=== PATIENT | female | born 1990 | race Two or more races ===

== ENCOUNTER 2020-10-15 14:13 | Outpatient (AMBR) | payer MEDICAID, SELFPAY ==
--- NOTE | 2020-09-21 10:37 | PT.OIERPT ---
PT OP Initial Eval Patient Information Visit Reasons: low back pain Medical Diagnosis: M54.5; M54.15 Treatment Dx #1: Back Pain Treatment Dx #2: Right LE Pain Start of Care: 09/21/20 Date of Onset: 1 month ago Initial Assessment Subjective Pt is a 30 y/o female c/o back pain (08/25) with right LE numbness and tingling started 1 month ago. No xray or MRI has been down thus far. Pt further mention that she has a large right ovary cyst (orange size) which may also be causing her sciatic pain. Pt is pending surgery but is unsure of the date. Pt currently has limitation with walking, chores, cooking, cleaning, lifting, standing, and performing recreational activities. Objective L/S AROM: all motions are 75% towards end range pain all plane Hip PROM: all motions are WFL except right hip flexion with pain Hip MMTs Glute Med: 3/5 Glute Max: 3/5 Special Test (+) SLR Muscle Length: Hs tightness R>L Assessment Pt demonstrate mobility deficits with pain leading to decline function. Pt will attempt physical therapy if pain persist Pt will be refer back to provider. 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 1) Increase L/S AROM WFL in 6 wks to be able to perform chores 2) Increase core strength WFL in 6 wks to be able to perform lifting activities 3) Increase hip MMTs grossly to 4-/5 in 6 wks to be able to perform ambulation more than 1 hr 4) Decrease back pain to 2/10 in 6 wks to be able to sit more than 1 hr 5) Indep with HEP Treatment Plan 1) Manual Therapy 2) Therapeutic Activities 3) Therapeutic Exercises 4) Modalities (ice, heat) Frequency and Duration 2 x wk for 6 wks Certification Dates: 09/21/20 to 12/22/20 Office Procedures PT Procedures PT Date of Service: 09/21/20 OP PT Eval Mod Complex 30 minutes: Yes
--- NOTE | 2020-09-24 15:05 | PT.ODAYNRPT ---
PT Outpatient Daily Note Date of Service: 09/24/2020 OP Daily Note Visit Reasons: low back pain Outpatient Physical Therapy Treatment Date: 09/24/20 Subjective: pt came in with back pain and complaints of radiating down to the R knee. Objective: flow sheet. Assessment: pt was ok laying supine while on heat for her exercises. she performed core strengthening exercises as well as BLE exercises. she attempted sidelying hip ABD in which the RLE was having pain and discomfort so after a few reps exercise was discontinued. she continued onto the following exercises. pt had no questions after treatment. Plan: continue POC per PT. Length of Time (minutes) of Treatment: 30 Minutes Office Procedures PT Procedures PT Date of Service: 09/21/20 OP PT Eval Mod Complex 30 minutes: Yes PT Procedures PT Date of Service: 09/24/20 Therapeutic Exercise 30 minutes: Yes
--- NOTE | 2020-09-27 14:13 | PT.ODAYNRPT ---
PT Outpatient Daily Note Date of Service: 09/27/20 OP Daily Note Visit Reasons: low back pain Outpatient Physical Therapy Treatment Date: 09/27/20 Subjective: Pt will find out her surgery date tomorrow. Pt's back felt better after last treatment session. Objective: Please see flow chart for list of ther ex performed Assessment: tolerate exercises with minimal pain Plan: Continue with PT Length of Time (minutes) of Treatment: 30 Minutes Office Procedures PT Procedures PT Date of Service: 09/21/20 OP PT Eval Mod Complex 30 minutes: Yes PT Procedures PT Date of Service: 09/24/20 Therapeutic Exercise 30 minutes: Yes PT Procedures PT Date of Service: 09/27/20 Therapeutic Exercise 30 minutes: Yes
--- NOTE | 2020-10-01 14:44 | PT.ODAYNRPT ---
PT Outpatient Daily Note Date of Service: 10/01/20 OP Daily Note Visit Reasons: low back pain Outpatient Physical Therapy Treatment Date: 10/01/20 Subjective: Pt's back feels better with therapy but it does come back Objective: Please see flow chart for list of ther ex performed Assessment: tolerate exercises with minimal pain Plan: Continue with PT Length of Time (minutes) of Treatment: 30 Minutes Office Procedures PT Procedures PT Date of Service: 09/21/20 OP PT Eval Mod Complex 30 minutes: Yes PT Procedures PT Date of Service: 10/01/20 Therapeutic Exercise 30 minutes: Yes PT Procedures PT Date of Service: 09/24/20 Therapeutic Exercise 30 minutes: Yes PT Procedures PT Date of Service: 09/27/20 Therapeutic Exercise 30 minutes: Yes
--- NOTE | 2020-10-03 13:46 | PT.ODAYNRPT ---
PT Outpatient Daily Note Date of Service: 10/03/2020 OP Daily Note Visit Reasons: low back pain Outpatient Physical Therapy Treatment Date: 10/03/20 Subjective: pt states her back is feeling ok today. Objective: see flow sheet. Assessment: per pt hot pack during her exercises. pt did well with pelvic tilts she did not need cuing for correction. pt denies pain during ther ex. used a different thera band for clam shells and she tolerated well although it was stronger resistance. assisted pt with getting up from supine due to wrong technique in which she needs more education. pt pleasant and had no questions post treatment. Plan: continue POC per PT. Length of Time (minutes) of Treatment: 30 Minutes Office Procedures PT Procedures PT Date of Service: 09/21/20 OP PT Eval Mod Complex 30 minutes: Yes PT Procedures PT Date of Service: 10/01/20 Therapeutic Exercise 30 minutes: Yes PT Procedures PT Date of Service: 09/24/20 Therapeutic Exercise 30 minutes: Yes PT Procedures PT Date of Service: 09/27/20 Therapeutic Exercise 30 minutes: Yes PT Procedures PT Date of Service: 10/03/20 Therapeutic Exercise 30 minutes: Yes
--- NOTE | 2020-10-15 14:43 | PT.ODAYNRPT ---
PT Outpatient Daily Note Date of Service: 10/15/20 OP Daily Note Visit Reasons: low back pain Outpatient Physical Therapy Treatment Date: 10/15/20 Subjective: Pt's back is much better and will like to continue PT. Pt has been able to sit, stand, and walk longer with less back pain and pressure since starting physical therapy. Objective: Please see flow chart for list of ther ex perfromed Assessment: tolerate exercises with minimal pain Plan: Continue with PT Length of Time (minutes) of Treatment: 30 Minutes Office Procedures PT Procedures PT Date of Service: 09/21/20 OP PT Eval Mod Complex 30 minutes: Yes PT Procedures PT Date of Service: 10/01/20 Therapeutic Exercise 30 minutes: Yes PT Procedures PT Date of Service: 10/15/20 Therapeutic Exercise 30 minutes: Yes PT Procedures PT Date of Service: 09/24/20 Therapeutic Exercise 30 minutes: Yes PT Procedures PT Date of Service: 09/27/20 Therapeutic Exercise 30 minutes: Yes PT Procedures PT Date of Service: 10/03/20 Therapeutic Exercise 30 minutes: Yes
--- NOTE | 2020-11-07 15:54 | PT.ODS1RPT ---
PT OP Progress/Discharge Note Date of Service: 11/07/20 Progress Note/DC Note Progress Note/Discharge Note: DC Note Patient Information Visit Reasons: low back pain Service Continue Service or Discharge: Discharge Discharge Date: 11/07/20 Status Assessment: Pt has been seen for 6 visits (eval + 5 visit). Pt last treated on 10/15/20 and no showed 10/29/20. Pt has been contact multiple time regarding follow up appts without success. At this time Pt will be d/c from care due to non-compliance per attendance policy. Pt did not meet set goals in therapy, thank you for your referrals. Office Procedures PT Treatments PT Date of Service: 09/21/20 OP PT Eval Mod Complex 30 minutes: Yes PT Treatments PT Date of Service: 10/01/20 Therapeutic Exercise 30 minutes: Yes PT Treatments PT Date of Service: 10/15/20 Therapeutic Exercise 30 minutes: Yes PT Treatments PT Date of Service: 09/24/20 Therapeutic Exercise 30 minutes: Yes PT Treatments PT Date of Service: 09/27/20 Therapeutic Exercise 30 minutes: Yes PT Treatments PT Date of Service: 10/03/20 Therapeutic Exercise 30 minutes: Yes
== END 2020-10-16 23:59 | disposition home or self-care (01) ==
PROVIDERS: PCP Physician Assistant; Referring Provider Physician Assistant; Visit Provider Physician Assistant
DX: M54.41 Lumbago with sciatica, right side (principal); R26.2 Difficulty in walking, not elsewhere classified
CPT/HCPCS: 97110; 97162

== ENCOUNTER 2024-03-06 12:06 | Emergency (ER) | payer MEDICAID, SELFPAY ==
[2024-03-06 12:51] VITALS: BP 127/82; PULSE 66; RESP 16; TEMP 36.6; O2SAT 100; BMI 41.5
--- NOTE | 2024-03-06 13:07 | XR_ITS ---
Examination: CT abdomen and pelvis without contrast. Coronal 3-D reconstructions. Sagittal 2-D reconstructions. Date and time of exam:March 06, 2024 1424 hrs. 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 Low dose protocols were performed. One or more of the following dose reduction techniques were used; automated exposure control, adjustment of the mA and/or KV according to patient size, use of iterative reconstruction technique. Findings: No focal liver or splenic lesion Suspicious for gallbladder sludge No pancreatic or adrenal mass No renal or ureteral calculi, no hydronephrosis Mild edema in the mesenteric fat for instance axial image 92 Small lymph nodes in the right lower mesentery Normal appendix 24 mm fat-containing umbilical hernia No bowel obstruction No diverticulitis Urinary bladder intact Anteverted uterus no pelvic mass Urinary bladder intact Satisfactory alignment lumbar vertebral bodies L5-S1 2 mm right paracentral disc bulge Impression: Mild edema in the mesenteric fat, no diverticulitis pattern Normal appendix Small lymph nodes in the right lower mesentery, consider mesenteric adenitis 24 mm fat-containing umbilical hernia L5-S1 2 mm right paracentral disc bulge, consider elective MRI lumbar spine without contrast follow-up
[2024-03-06 13:26] LABS: Collection Type, Urine Clean Catch
[2024-03-06 13:40] LABS: Alanine Aminotransferase 18 U/L (10-49); Albumin, Serum 5.2 gm/dL (3.5-5.0); Albumin/Globulin Ratio 1.6 (1.2-2.2); Alkaline Phosphatase 90 U/L (46-116); Anion Gap 7 (7-16); Aspartate Amino Transferase 32 U/L (0-34); BUN/Creatinine Ratio 15 Ratio (12-20); Bilirubin,Total 0.8 mg/dL (0.3-1.2); Blood Urea Nitrogen 15 mg/dL (9-23); Calcium 9.1 mg/dL (8.3-10.6); Calcium (Corrected) 9.1 mg/dL (8.5-10.1); Carbon Dioxide 29.4 mMol/L (20.0-31.0); Chloride 101 mMol/L (98-107); Estimated Creatinine Clearance 85.8 mL/min (>60); Globulin 3.2 gm/dL (2.3-3.5); Glucose 100 mg/dL (74-106); Lipase 46 U/L (12-53); Osmolality,Calculated 274 (275-295); Potassium 4.7 mMol/L (3.4-5.1); Sodium 137 mMol/L (136-145); Total Protein 8.4 gm/dL (5.7-8.2); eGFR > 60 See Note
[2024-03-06 13:47] LABS: Basophils % (Auto) 0 % (0-2.5); Eosinophils # (Auto) 0.2 Thou/mm3 (0.0-0.5); Eosinophils % (Auto) 2 % (0-10); Hematocrit 39.5 % (36.0-46.0); Hemoglobin 13.3 g/dL (12.0-16.0); Immature Granulocytes % (Auto) 1 % (0-0); Immature Granulocytes Auto 0.05 Thou/mm3 (0.00-0.00); Lymphocytes # (Auto) 3.3 Thou/mm3 (1.0-4.8); Lymphocytes % (Auto) 38 % (10-50); Mean Corpuscular HGB Conc 33.7 g/dl (31.0-37.0); Mean Corpuscular Hemoglobin 29.3 pg (25.0-35.0); Mean Corpuscular Volume 87 fL (80-100); Monocytes # (Auto) 0.5 Thou/mm3 (0.0-0.8); Monocytes % (Auto) 5 % (0-12); Neutrophils # (Auto) 4.7 Thou/mm3 (1.8-7.7); Neutrophils % (Auto) 54 % (37-80); Nucleated Red Blood Cell % 0 /100 WBC (0); Platelet Count 190 Thou/mm3 (140-440); Red Blood Count 4.54 Miln/mm3 (4.00-5.20); White Blood Count 8.7 Thou/mm3 (3.6-11.0)
[2024-03-06 13:51] LABS: HCG Qualitative,Urine Negative
[2024-03-06 13:52] LABS: Bilirubin,Urine Negative (Negative); Blood,Urine Negative (Negative); Clarity,Urine Clear (Clear/Hazy); Culture Indicated,Urine Not Indicated; Glucose, Urine Negative (Negative); Ketones,Urine Negative (Negative); Leukocyte Esterase,Urine Negative (Negative); Nitrite,Urine Negative (Negative); Protein,Urine Negative (Neg - Trace); RBC,Urine 2 /hpf (0-3); Specific Gravity,Urine 1.007 (1.001-1.035); Squamous Epithelial Cell,Urine 3 /hpf (0-5); Urobilinogen,Urine Negative mg/dL (0.0-1.0); WBC,Urine 2 /hpf (0-5)
[2024-03-06 13:53] LABS: Color,Urine Lt-Yellow (Lt Yel-Yel)
--- NOTE | 2024-03-06 15:43 | EDNOTE_ITS ---
ED Abdominal Pain RME/HPI General Chief Complaint: Abdominal Pain Stated complaint: SHARP PAIN IN STOMACH, BACK AND CHEST X8 DAYS Time seen by provider: 03/06/24 12:19 Arrival date/time: 03/06/24 12:06 33-year-old female presents emergency department complains of lower abdominal pain ongoing x 8 days patient reports no chest pain no shortness of breath no headache dizziness or weakness patient reports no fever Limitations: no limitations Related Data Previous Rx's ?Medication ?Instructions ?Recorded famotidine 40 mg tablet 40 mg PO QDAY #14 tabs 02/15/23 fluconazole 100 mg tablet 100 mg PO BID #6 tabs 02/15/23 meloxicam 7.5 mg tablet 7.5 mg PO QDAY #10 tabs 02/15/23 ibuprofen 800 mg tablet 800 mg PO TID PRN pain #30 tabs 03/06/24 metoclopramide HCl 10 mg tablet 10 mg PO Q6H PRN nausea and 03/06/24 (Reglan) vomiting #30 tabs Allergies Allergy/AdvReac Type Severity Reaction Status Date / Time No Known Allergies Allergy Verified 03/06/24 12:09 Review of Systems Review of Systems Systems Reviewed: All systems reviewed, normal except as documented Constitutional Constitutional: Reports system reviewed and no additional complaints, except as documented, Denies fever(s) and Denies headache(s) Eyes Eyes: Reports system reviewed and no additional complaints, except as documented and Denies blurry vision ENT Ears, Nose, Mouth, and Throat: Reports system reviewed and no additional complaints, except as documented, Denies headache(s), Denies nasal congestion and Denies nasal discharge Cardiovascular Cardiovascular: Reports system reviewed and no additional complaints, except as documented, Denies chest pain and Denies dyspnea Respiratory Respiratory: Reports system reviewed and no additional complaints, except as documented, Denies chest congestion, Denies cough and Denies dyspnea Gastrointestinal Gastrointestinal: Reports system reviewed and no additional complaints, except as documented, Reports abdominal pain, Denies nausea and Denies vomiting Integumentary/Breasts Skin/Breast: Reports system reviewed and no additional complaints, except as documented and Denies rash Neurologic Neurologic: Reports system reviewed and no additional complaints, except as documented, Reports as per HPI and Denies headache(s) Past Medical History Past Medical History NEUROLOGIC: Negative Neurological Disorders CARDIAC: Negative Cardiac Disorders ED Exam General Limitations: Present no limitations General appearance: Present alert and in no apparent distress Head Head exam: Present atraumatic, normocephalic and normal inspection Eye Eye exam: Present normal appearance, PERRL and EOMI; Absent conjunctival injection ENT ENT exam: Present normal exam, normal oropharynx and mucous membranes moist Neck Neck exam: Present normal inspection, full ROM and trachea midline Chest Chest inspection: Present normal inspection and symmetric chest wall rise Respiratory Respiratory exam: Present normal lung sounds bilaterally; Absent respiratory distress, wheezes, stridor or accessory muscle use Cardiovascular Cardiovascular exam: Present regular rate, normal rhythm and normal heart sounds Abdominal Exam Abdominal exam: Present soft and normal bowel sounds; Absent distention, tenderness, guarding, rebound, rigidity, Sanz's sign or tenderness at McBurney's Point Abdominal tenderness: Absent RUQ or RLQ Extremities Exam Extremities exam: Present normal inspection and full ROM Back Exam Back exam: Present normal inspection and full ROM Neurological Exam Neurological exam: Present alert, oriented X3 and CN II-XII intact Psychiatric Psychiatric exam: Present normal affect and normal mood Skin Skin exam: Present warm, dry, intact and normal color Course Quality Measures none Orders Category Date Time Status CT abdomen pelvis wo con Stat Exams 03/06/24 13:07 Completed CBC Stat Lab 03/06/24 13:13 Completed Comprehensive Metabolic Panel Stat Lab 03/06/24 13:13 Completed HCG Qualitative,Urine Stat Lab 03/06/24 13:20 Completed Lipase Stat Lab 03/06/24 13:13 Completed UA, C/S IF [Urinalysis, C/S if Indicated] Stat Lab 03/06/24 13:20 Completed Vital Signs Vital signs: Vital Signs Temperature 97.9 F 03/06/24 12:51 Pulse Rate 66 03/06/24 12:51 Respiratory Rate 16 03/06/24 12:51 Blood Pressure 127/82 03/06/24 12:51 Pulse Oximetry (%) 100 03/06/24 12:51 Oxygen Delivery Method Room Air 03/06/24 12:51 O2 saturation 100% room air within normal Abdominal Pain MDM MDM Narrative MDM Narrative:: 33-year-old female presents emergency department complains of lower abdominal pain ongoing x 8 days patient reports no chest pain no shortness of breath no headache dizziness or weakness patient reports no fever On exam patient does not appear ill or toxic patient's not appear acute distress patient is nontender abdomen patient does report pain mostly left lower quadrant Lab work as well as CT scan obtained no acute emergent findings noted Patient discharged home in no distress to follow-up with primary care doctor in the next 24 to 48 hours and for any worsening symptoms to return to the ER immediately Patient data External records reviewed:: [facility] previous records Clinical information provided by:: patient Social determinants that could affect healthcare access:: none Patient has the following chronic illnesses:: None How is presenting disease/condition affected by chronic disease/condition?: no chronic disease Evaluation data The following diagnostics were reviewed and interpreted by me:: lab results and radiology exam(s) Lab and/or radiology exams considered but not ordered:: Labs radiology obtained Interpretation Summary: Reviewed by me Medications / Prescriptions Medications or Prescriptions considered but not ordered:: Given Medication administrations:: Given Consultations Consultation(s) initiated? (list below): No Diagnosis Differential diagnosis abdominal pain: abdominal pain, acute appendicitis, calculus of kidney, diverticulitis, gastroenteritis and pancreatitis Most likely diagnosis given after review of the tests above:: Abdominal pain Admission Indicated Admission indicated?: not indicated Admission Request Was there a request for admission?: No Disposition Plan Disposition Plan: Discharge Discharge Attestation Discharge Attestation: The patient and all family members were given an opportunity to ask questions and understood the discharge instructions. Discharge instructions specifically effects, indications for sooner follow up or return to the emergency department, and the expected course of current diagnosis. Patient condition: Stable Discharge Plan Plan Patient Disposition: HOME (Self Care) Disposition Comment: Stable Prescriptions/Referrals Prescriptions/Med Rec: New metoclopramide HCl [Reglan] 10 mg tablet 10 mg PO Q6H PRN (Reason: nausea and vomiting) Qty: 30 0RF ibuprofen 800 mg tablet 800 mg PO TID PRN (Reason: pain) Qty: 30 0RF No Action famotidine 40 mg tablet 40 mg PO QDAY Qty: 14 0RF fluconazole 100 mg tablet 100 mg PO BID Qty: 6 0RF meloxicam 7.5 mg tablet 7.5 mg PO QDAY Qty: 10 0RF Referrals: Edna Brady PA-C [Primary Care Provider] - 03/07/24 Problem List Clinical Impression: Abdominal pain, Mesenteric adenitis Patient/Caregiver Discharge Instructions Education Materials: Abdominal Pain Additional Instructions: Please follow up with your primary care doctor in the next 24-48hrs for any worsening symptoms return here immediately Print Language: Japanese Stand Alone Forms: Vanita Award Info., Work/School Release, Patient Portal Info Letter PA/CUSTOMS CONSULTANT Supervising Physician PA/CUSTOMS CONSULTANT Supervising Physician: Dr Casanova
== END 2024-03-06 16:03 | disposition home or self-care (01) ==
PROVIDERS: Nurse Practitioner Primary Care; Emergency Provider Emergency Medicine; PCP Physician Assistant
DX: I88.0 Nonspecific mesenteric lymphadenitis (principal)
CPT/HCPCS: 36415; 74176; 80053; 81001; 81025; 83690; 85025; 99284

== ENCOUNTER 2024-06-30 07:50 | Emergency (ER) | payer MEDICAID, SELFPAY ==
[2024-06-30 07:51] VITALS: BMI 41.5
[2024-06-30 07:58] VITALS: BP 133/94; PULSE 95; RESP 20; TEMP 36.4; O2SAT 96
--- NOTE | 2024-06-30 08:00 | EKG_ITS ---
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: : 1990 Requested By: Petros Peralta Order Number: [id number] Reading MD: Petros Peralta Measurements Intervals Grubbs Rate: 82 P: 49 OK: 147 QRS: -31 QRSD: 94 T: 73 QT: 368 QTc: 431 Interpretive Statements SINUS RHYTHM INDETERMINATE AXIS LOW QRS VOLTAGE IN PRECORDIAL LEADS [QRS DEFLECTION < 1.0 mV IN CHEST LEADS] POSSIBLE ANTERIOR MYOCARDIAL INFARCTION , OF INDETERMINATE AGE [30 ms Q WAVE IN V3/V4, OR R < 0.2 mV IN V4] Compared to ECG 01/01/2022 14:56:27 Indeterminate axis now present Low QRS voltage now present Myocardial infarct finding now present Sinus tachycardia no longer present T-wave abnormality no longer present Possible ischemia no longer present /store/S0/[id number].pdf
--- NOTE | 2024-06-30 08:00 | XR_ITS ---
Examination: PA lateral chest 2 views TECHNIQUE: Upright PA lateral chest 2 views Date and time: June 30, 2024 0816 hours INDICATIONS: Coughing fever beginning 2 weeks ago. FINDINGS: Normal heart size No pneumonia or pulmonary edema. Mild osteopenia IMPRESSION: No pneumonia identified
--- NOTE | 2024-06-30 08:01 | EDNOTE_ITS ---
<Statement entered by Crista Esparza MD - 06/30/24 10:57> As co-signing physician, I was present and available for consult prn. I concur with the plan and care as documented by the midlevel provider. ED SOB =RME/HPI General Chief Complaint: Shortness of Breath/Dyspnea Stated Complaint: COUGH WITH CHEST PAIN/DIFF BREATHING X2WKS Time Seen by Provider: 06/30/24 07:52 Source: patient Arrival date/time: 06/30/24 07:50 33-year-old female with no known medical history presents to the emergency room with a chief complaint of sternal chest pain and cough x 2 weeks Mode of arrival: ambulatory Limitations: no limitations Related Data Previous Rx's ?Medication ?Instructions ?Recorded famotidine 40 mg tablet 40 mg PO QDAY #14 tabs 02/15 fluconazole 100 mg tablet 100 mg PO BID #6 tabs meloxicam 7.5 mg tablet 7.5 mg PO QDAY #10 tabs 01/18 03/10 ibuprofen 800 mg tablet 800 mg PO TID PRN pain #30 t abs 03/06/24 metoclopramide HCl 10 mg tablet 10 mg PO Q6H PRN nause a and 03/06/24 (Reglan) vomiting #30 tabs Allergies Allergy/AdvReac Type Severity Reaction Status Date / Time No Known Allergies Allergy Verified 06/30/24 07:53 Review of Systems Review of Systems Systems Reviewed: All systems reviewed, normal except as documented Constitutional Constitutional: Reports system reviewed and no additional complaints, except as documented, Denies fatigue, Denies fever(s), Denies headache(s) and Denies weakness Eyes Eyes: Reports system reviewed and no additional complaints, except as documented, Denies blurry vision and Denies change in vision ENT Ears, Nose, Mouth, and Throat: Reports system reviewed and no additional complaints, except as documented, Denies otalgia, Denies headache(s), Denies nasal congestion, Denies throat swelling and Denies vertigo Cardiovascular Cardiovascular: Reports system reviewed and no additional complaints, except as documented, Reports chest pain, Reports dyspnea and Denies dyspnea on exertion Respiratory Respiratory: Reports system reviewed and no additional complaints, except as documented, Denies chest congestion, Reports cough, Reports dyspnea, Denies dyspnea on exertion and Denies wheezing Gastrointestinal Gastrointestinal: Reports system reviewed and no additional complaints, except as documented, Denies abdominal pain, Denies cramping, Denies nausea and Denies vomiting Genitourinary Genitourinary: Reports system reviewed and no additional complaints, except as documented Musculoskeletal Musculoskeletal: Reports system reviewed and no additional complaints, except as documented and Denies back pain Integumentary/Breasts Skin/Breast: Reports system reviewed and no additional complaints, except as documented and Denies wounds Neurologic Neurologic: Reports system reviewed and no additional complaints, except as documented, Denies confusion, Denies headache(s), Denies lack of coordination, Denies vertigo and Denies weakness Psychiatric Psychiatric: Reports system reviewed and no additional complaints, except as documented, Denies anxiety, Denies confusion, Denies depression, Denies paranoia, Denies suicidal ideation and Denies tactile hallucinations Endocrine Endocrine: Reports system reviewed and no additional complaints, except as documented and Denies fatigue Hematologic/Lymphatic Hematologic/Lymphatic: Reports system reviewed and no additional complaints, except as documented and Denies lymphadenopathy Allergic/Immunologic Allergic/Immunologic: Reports system reviewed and no additional complaints, except as documented, Denies throat swelling, Denies urticaria and Denies wheezing Past Medical History Past Medical History NEUROLOGIC: Negative Neurological Disorders CARDIAC: Negative Cardiac Disorders or Congestive Heart Failure RESPIRATORY: Negative Chronic Obstructive Pulmonary Disease (COPD) or Asthma GENITOURINARY: Negative Renal Disease ENDOCRINE: Positive Hypothyroidism; Negative Diabetes Mellitus Type 1 or Diabetes Mellitus Type 2 HEMATOLOGIC: Negative Sickle Cell Disease Social History SMOKING STATUS: Never smoker SUBSTANCE USE: does not use ED Exam General Limitations: Present no limitations General appearance: Present alert and in no apparent distress Head Head exam: Present atraumatic Eye Eye exam: Present normal appearance, PERRL and EOMI ENT ENT exam: Present normal exam, normal oropharynx and mucous membranes moist Neck Neck exam: Present normal inspection, full ROM and trachea midline Chest Chest inspection: Present normal inspection and symmetric chest wall rise Respiratory Respiratory exam: Present normal lung sounds bilaterally; Absent respiratory distress, wheezes, stridor, accessory muscle use or prolonged expiratory phase Cardiovascular Cardiovascular exam: Present regular rate, normal rhythm and normal heart sounds; Absent bradycardia, tachycardia or irregular rhythm Abdominal Exam Abdominal exam: Present soft and normal bowel sounds Extremities Exam Extremities exam: Present normal inspection and full ROM Back Exam Back exam: Present normal inspection and full ROM Neurological Exam Neurological exam: Present alert, oriented X3 and CN II-XII intact Psychiatric Psychiatric exam: Present normal affect and normal mood Skin Skin exam: Present warm, dry, intact and normal color Course Quality Measures none Orders Category Date Time Status Bedside COVID-19 Antigen Test NOW Care 06/30/24 08:00 Active Bedside Influenza A&B Antigen Test NOW Care 06/30/24 08:00 Completed EKG (ED ONLY) *Do not use* NOW Care 06/30/24 08:00 Completed EKG (ED Only) Stat Exams 06/30/24 08:00 Draft XR chest 2V Stat Exams 06/30/24 08:00 Completed BNP [B-Type Natriuretic Peptide] Stat Lab 06/30/24 08:20 Completed CBC Stat Lab 06/30/24 08:20 Completed CMP [Comprehensive Metabolic Panel] Stat Lab 06/30/24 08:20 Completed Troponin I Stat Lab 06/30/24 08:20 Completed Vital Signs Vital signs: Vital Signs Temperature 97.6 F 06/30/24 07:58 Pulse Rate 95 06/30/24 07:58 Respiratory Rate 20 06/30/24 07:58 Blood Pressure 133/94 H 06/30/24 07:58 Pulse Oximetry (%) 96 06/30/24 07:58 Oxygen Delivery Method Room Air 06/30/24 07:58 O2 saturation 96% within normal limits Shortness of Breath / Dyspnea MDM Narrative MDM Narrative:: 33-year-old female with no known medical history presents to the emergency room with a chief complaint of sternal chest pain and cough x 2 weeks Patient is hemodynamically stable and in no apparent distress Physical examination shows clear bilateral lung sounds. There is no wheezing there is no abnormal breath sounds. Patient has a strong and regular rhythm. S1 and S2 noted EKG was completed and shows normal sinus rhythm at [address] deviation. Troponin, CBC CMP were all negative for any acute findings. Chest x-ray was negative for any pneumonic infiltrates. Patient was discharged and educated to follow-up with primary care provider in the next 24 to 48 hours and return to the emergency room for any evidence of worsening signs or symptoms Patient data External records reviewed:: [facility] previous records Clinical information provided by:: patient Social determinants that could affect healthcare access:: none Patient has the following chronic illnesses:: No chronic illness How is presenting disease/condition affected by chronic disease/condition?: no chronic disease Evaluation data The following diagnostics were reviewed and interpreted by me:: lab results and radiology exam(s) Lab and/or radiology exams considered but not ordered:: Labs and radiology exams considered and ordered Interpretation Summary: Chest [id number]: Normal heart size No pneumonia or pulmonary edema. Mild osteopenia IMPRESSION: No pneumonia identified Medications / Prescriptions Medications or Prescriptions considered but not ordered:: No medication given Medication administrations:: No medication given Consultations Consultation(s) initiated? (list below): No Diagnosis Shortness of Breath Differential Diagnosis: community acquired pneumonia and other (COVID-19/influenza/UT/chest pain) Most likely diagnosis given after review of the tests above:: Chest pain Admission Indicated Admission indicated?: not indicated Admission Request Was there a request for admission?: No Disposition Plan Disposition Plan: Discharge Discharge Attestation Discharge Attestation: The patient and all family members were given an opportunity to ask questions and understood the discharge instructions. Discharge instructions specifically effects, indications for sooner follow up or return to the emergency department, and the expected course of current diagnosis. Patient condition: Stable Discharge Plan Plan Patient Disposition: HOME (Self Care) Discharge Disposition comment: Stable Prescriptions/Referrals Prescriptions/Med Rec: No Action metoclopramide HCl [Reglan] 10 mg tablet 10 mg PO Q6H PRN (Reason: nausea and vomiting) Qty: 30 0RF ibuprofen 800 mg tablet 800 mg PO TID PRN (Reason: pain) Qty: 30 0RF famotidine 40 mg tablet 40 mg PO QDAY Qty: 14 0RF fluconazole 100 mg tablet 100 mg PO BID Qty: 6 0RF meloxicam 7.5 mg tablet 7.5 mg PO QDAY Qty: 10 0RF Referrals: Edna Brady PA-C [Primary Care Provider] - In 1 week Problem List Clinical Impression: Chest pain, non-cardiac Patient/Caregiver Discharge Instructions Education Materials: ED Chest Pain, Noncardiac Additional Instructions: Please follow-up with your primary care provider in the next 24 to 40 hours. Your cardiac examination was negative for any acute findings. Your chest x-ray was negative for any pneumonic infiltrates For any evidence of worsening signs or symptoms return to the emergency room immediately Print Language: Turkish Stand Alone Forms: Vanita Award Info., Work/School Release, Patient Portal Info Letter
[2024-06-30 08:49] LABS: Basophils % (Auto) 0 % (0-2.5); Eosinophils # (Auto) 0.2 Thou/mm3 (0.0-0.5); Eosinophils % (Auto) 3 % (0-10); Hematocrit 39.3 % (36.0-46.0); Hemoglobin 13.3 g/dL (12.0-16.0); Immature Granulocytes % (Auto) 1 % (0-0); Immature Granulocytes Auto 0.05 Thou/mm3 (0.00-0.00); Lymphocytes # (Auto) 3.5 Thou/mm3 (1.0-4.8); Lymphocytes % (Auto) 39 % (10-50); Mean Corpuscular HGB Conc 33.8 g/dl (31.0-37.0); Mean Corpuscular Hemoglobin 30.2 pg (25.0-35.0); Mean Corpuscular Volume 89 fL (80-100); Monocytes # (Auto) 0.5 Thou/mm3 (0.0-0.8); Monocytes % (Auto) 5 % (0-12); Neutrophils # (Auto) 4.7 Thou/mm3 (1.8-7.7); Neutrophils % (Auto) 53 % (37-80); Nucleated Red Blood Cell % 0 /100 WBC (0); Platelet Count 212 Thou/mm3 (140-440); RDW Standard Deviation 47.8 fL (36.4-46.3)
[2024-06-30 09:01] LABS: Alanine Aminotransferase 28 U/L (10-49); Albumin, Serum 4.9 gm/dL (3.5-5.0); Albumin/Globulin Ratio 1.6 (1.2-2.2); Alkaline Phosphatase 70 U/L (46-116); Anion Gap 11 (7-16); Aspartate Amino Transferase 26 U/L (0-34); B-Type Natriuretic Peptide < 20 pg/mL (0-100); BUN/Creatinine Ratio 11 Ratio (12-20); Bilirubin,Total 0.4 mg/dL (0.3-1.2); Blood Urea Nitrogen 12 mg/dL (9-23); Calcium 8.4 mg/dL (8.3-10.6); Calcium (Corrected) 8.4 mg/dL (8.5-10.1); Carbon Dioxide 26.1 mMol/L (20.0-31.0); Chloride 103 mMol/L (98-107); Creatinine (Component) 1.1 mg/dL (0.6-1.3); Globulin 3.1 gm/dL (2.3-3.5); Glucose 103 mg/dL (74-106); Osmolality,Calculated 279 (275-295); Potassium 4.1 mMol/L (3.4-5.1); Sodium 140 mMol/L (136-145); Troponin I < 0.002 ng/mL (0.0-0.045); eGFR > 60 See Note
== END 2024-06-30 09:53 | disposition home or self-care (01) ==
PROVIDERS: Nurse Practitioner Family; Emergency Provider Emergency Medicine; PCP Physician Assistant
DX: R07.89 Other chest pain (principal); R05.9 Cough, unspecified
CPT/HCPCS: 36415; 71046; 80053; 83880; 84484; 85025; 87400; 87811; 93005; 99283

== ENCOUNTER 2024-08-24 10:06 | Emergency (ER) | payer MEDICAID, SELFPAY ==
[2024-08-24 10:34] VITALS: BP 138/95; PULSE 101; RESP 18; TEMP 36.9; O2SAT 97; BMI 38.9
--- NOTE | 2024-08-24 10:50 | XR_ITS ---
Examination: Tibia-Fibula, right , 2 views Technique: Tibia-fibula AP lateral 2 views Date and time of exam: August 24, 2024 1112 hours INDICATIONS: Puncture injury to the lower leg today, pain FINDINGS: No acute fracture. No dislocation. No foreign body IMPRESSION: No opaque foreign body
--- NOTE | 2024-08-24 10:55 | PD.EDANIML ---
ED Animal Bite RME/HPI General Chief Complaint: Animal Bite Stated Complaint: Dog bite right leg Time Seen by Provider: 08/24/24 10:09 Source: patient Arrival date/time: 08/24/24 10:06 This is a 34-year-old female presents to the emergency department accompanied with mother for complaints of a dog bite. Patient states she was walking outdoors when a stray dog bit her right lower leg. She does report the dog appeared friendly however a bit her. She does have a small abrasion right lower leg near her knee. No other injuries reported by patient. Mode of arrival: ambulatory Limitations: no limitations Related Data Previous Rx's ?Medication ?Instructions ?Recorded famotidine 40 mg tablet 40 mg PO QDAY #14 tabs 02/15/23 fluconazole 100 mg tablet 100 mg PO BID #6 tabs 02/15/23 meloxicam 7.5 mg tablet 7.5 mg PO QDAY #10 tabs 02/15/23 ibuprofen 800 mg tablet 800 mg PO TID PRN pain #30 tabs 03/06/24 metoclopramide HCl 10 mg tablet 10 mg PO Q6H PRN nausea and 03/06/24 (Reglan) vomiting #30 tabs amoxicillin 875 mg-potassium 1 tab PO BID #14 tabs 08/24/24 clavulanate 125 mg tablet Allergies Allergy/AdvReac Type Severity Reaction Status Date / Time No Known Allergies Allergy Verified 08/24/24 10:10 Review of Systems Review of Systems Systems Reviewed: All systems reviewed, normal except as documented Narrative Review of Systems: Gen: No fever, no chills, no weight loss EYES: No discharge, no visual changes, no pain HEENT: No ear pain, no congestion, no sore throat PULM: No shortness of breath, no cough, no congestion CV: No chest pain, no dyspnea on exertion, no palpitations GI: No nausea, no vomiting, no diarrhea, no pain, no constipation : No frequency, no urgency, no dysuria Musc/skel: No joint pain, no back pain Skin: Dog bite Psyc: No hallucinations, no depression Heme/Lymph: No easy bleeding or bruising tendencies Neuro: No weakness, no headache ED Exam General Limitations: Present no limitations General appearance: Present alert and in no apparent distress Head Head exam: Present atraumatic Eye Eye exam: Present normal appearance, PERRL and EOMI ENT ENT exam: Present normal exam, normal oropharynx and mucous membranes moist Neck Neck exam: Present normal inspection, full ROM and trachea midline Chest Chest inspection: Present normal inspection and symmetric chest wall rise Respiratory Respiratory exam: Present normal lung sounds bilaterally Cardiovascular Cardiovascular exam: Present regular rate, normal rhythm and normal heart sounds Abdominal Exam Abdominal exam: Present soft and normal bowel sounds Extremities Exam Extremities exam: Present normal inspection and full ROM Expanded Lower Extremity Exam Leg image:  1. _Triangular skin avulsion right lateral lower leg. No deep structures identified. Back Exam Back exam: Present normal inspection and full ROM Neurological Exam Neurological exam: Present alert, oriented X3 and CN II-XII intact Psychiatric Psychiatric exam: Present normal affect and normal mood Skin Skin exam: Present warm, dry, intact and normal color Course Quality Measures none Orders Category Date Time Status Wound Care NOW Care 08/24/24 10:50 Active XR tibia fibula RT 2V Stat Exams 08/24/24 10:50 Completed TET,DIP/PERT AC (Adult)-Tdap [Boostrix Adult (Tdap) Med 08/24/24 10:50 Discontinued Vacc] 0.5 ml IMI .ONCE ONE Vital Signs Vital signs: Vital Signs Temperature 98.5 F 08/24/24 10:34 Pulse Rate 101 H 08/24/24 10:34 Respiratory Rate 18 08/24/24 10:34 Blood Pressure 138/95 H 08/24/24 10:34 Pulse Oximetry (%) 97 08/24/24 10:34 Oxygen Delivery Method Room Air 08/24/24 10:34 Animal Bite MDM Narrative MDM Narrative:: 34-year-old female evaluated in the emergency department for dog bite superficial avulsion of skin noted. Patient's wound cleansed with irrigation of 250 mL. TDaP updated. X-ray obtained no foreign body visualized or fractures. - Advised to start Augmentin as directed. - Wound check in 48 hours Strict ER precautions to return if any worsening symptoms any condition. Patient data External records reviewed:: [facility] previous records Clinical information provided by:: patient Social determinants that could affect healthcare access:: none Patient has the following chronic illnesses:: None How is presenting disease/condition affected by chronic disease/condition?: no chronic disease Evaluation data The following diagnostics were reviewed and interpreted by me:: radiology exam(s) Lab and/or radiology exams considered but not ordered:: X-rays ordered Interpretation Summary: Examination: Tibia-Fibula, right , 2 views Technique: Tibia-fibula AP lateral 2 views Date and time of exam: August 24, 2024 1112 hours INDICATIONS: Puncture injury to the lower leg today, pain FINDINGS: No acute fracture. No dislocation. No foreign body IMPRESSION: No opaque foreign body No fractures or foreign body today. Medications / Prescriptions Medications or Prescriptions considered but not ordered:: None Medication administrations:: Medication Administration History Discontinued Medications Diphtheria/Tetanus/Acell Pertussis (Diphth,Pertuss(Acell),Tet Vac 0.5 Ml Syr- Adult) 0.5 ml IMi .ONCE ONE Stop: 08/24/24 10:51 Last Admin: 08/24/24 11:20 Dose: 0.5 ml Documented By: GINA All medications administered and effective Consultations Consultation(s) initiated? (list below): No Diagnosis Differential diagnosis animal bite: bite by animal, cat bite, dog bite and rabies contact Most likely diagnosis given after review of the tests above:: Dog bite, skin avulsion. Admission Indicated Admission indicated?: not indicated Admission Request Was there a request for admission?: No Disposition Plan Disposition Plan: Discharge Discharge Attestation Discharge Attestation: The patient and all family members were given an opportunity to ask questions and understood the discharge instructions. Discharge instructions specifically effects, indications for sooner follow up or return to the emergency department, and the expected course of current diagnosis. Patient condition: Stable Discharge Plan Plan Patient Disposition: HOME (Self Care) Prescriptions/Referrals Prescriptions/Med Rec: New amoxicillin-pot clavulanate 875-125 mg tablet 1 tab PO BID Qty: 14 0RF No Action metoclopramide HCl [Reglan] 10 mg tablet 10 mg PO Q6H PRN (Reason: nausea and vomiting) Qty: 30 0RF ibuprofen 800 mg tablet 800 mg PO TID PRN (Reason: pain) Qty: 30 0RF famotidine 40 mg tablet 40 mg PO QDAY Qty: 14 0RF fluconazole 100 mg tablet 100 mg PO BID Qty: 6 0RF meloxicam 7.5 mg tablet 7.5 mg PO QDAY Qty: 10 0RF Referrals: Edna Brady PA-C [Primary Care Provider] - In 1 week Problem List Clinical Impression: Dog bite Patient/Caregiver Discharge Instructions Discharge Activity: activity as tolerated Education Materials: ED Dog Bite Additional Instructions: Please keep area clean and dry. Can apply triple antibiotic twice daily for 5 days. Augmentin antibiotic as directed. Tetanus shot updated today. Follow-up with your primary doctor 2 to 3 days for wound recheck. reTurn to the emergency department with any worsening symptoms or condition. Print Language: Djiboutian Stand Alone Forms: Vanita Award Info., Patient Portal Info Letter PA/SOLE ROUGHER Supervising Physician PA/SOLE ROUGHER Supervising Physician: Dr. Montaño
[2024-08-24] MEDS: DIPHTH,PERTUSS(ACELL),TET VAC 0.5 ML SYR- ADULT IMi (11:20)
== END 2024-08-24 12:10 | disposition home or self-care (01) ==
PROVIDERS: Emergency Provider Emergency Medicine; PCP Physician Assistant
DX: S81.801A Unspecified open wound, right lower leg, initial encounter (principal); W54.0XXA Bitten by dog, initial encounter; Z23 Encounter for immunization
CPT/HCPCS: 73590; 90471; 90715; 99283

== ENCOUNTER → 2025-02-11 | Outpatient (CLI) | payer MEDICAID, SELFPAY ==
[2025-02-10 10:51] LABS: HCG Qualitative,Urine Negative
--- NOTE | 2025-02-11 08:00 | XR_ITS ---
EXAMINATION: MRI brain with intravenous contrast TECHNIQUE: Multiple axial sagittal coronal brain MRI images post intravenous administration 20 cc gadolinium INDICATIONS: Ringing in the left ear 6 months. Date and time: February 11, 2025, 2013 hours FINDINGS: Ventricles are normal in size and configuration. No mass effect upon the ventricular system Fourth ventricle is midline Bilateral moderate mastoiditis No abnormal enhancing acoustic neurinoma No abnormal enhancing cerebellar or cerebral lesions IMPRESSION: No abnormal enhancing cerebellar or cerebral lesions No MR findings of acoustic neurinoma Moderate bilateral mastoiditis
== END | disposition home or self-care (01) ==
LOC: SMRI 02-14 07:02
PROVIDERS: Referring Provider Otolaryngology; Visit Provider Otolaryngology
DX: H70.93 Unspecified mastoiditis, bilateral (principal); Z32.00 Encounter for pregnancy test, result unknown
CPT/HCPCS: 70552; 81025; A9577